=== PATIENT | female | born 1985 | race Caucasian/White ===

== ENCOUNTER 2023-07-27 21:28 | Outpatient (REF) | payer OTHER, SELFPAY ==
[2023-07-30 10:14] LABS: Age Gdln ACOG Testing Note (.); HPV Aptima Negative (Negative); IGP, Aptima HPV, rfx 16/18,45 Note (.)
== END 2023-07-27 21:29 | disposition home or self-care (01) ==
LOC: LAB 21:28
PROVIDERS: PCP Family Medicine; Visit Provider Physician Assistant
DX: Z12.4 Encounter for screening for malignant neoplasm of cervix (principal)
CPT/HCPCS: 87624; G0145

== ENCOUNTER 2024-10-17 19:51 | Outpatient (REF) | payer OTHER, SELFPAY | END 2024-10-17 19:52 | disposition home or self-care (01) | LOC: LAB 19:51 | PROVIDERS: PCP Family Medicine; Visit Provider Physician Assistant | DX: Z01.419 Encounter for gynecological examination (general) (routine) without abnormal findings (principal) | CPT/HCPCS: 87624; 88175 ==

== ENCOUNTER 2025-10-26 19:02 | Outpatient (REF) | payer OTHER, SELFPAY ==
--- OUTSIDE RECORDS SUMMARY | 2025-10-26 19:06 | XMS_ITS | CCD ---
Author Organization [facility] Care Team Providers Care Front Counter Clerk Name Role Phone PHYSICIAN, DEFAULT Unavailable Unavailable PHYSICIAN, DEFAULT Unavailable Unavailable UNKNOWN, PROVIDER Unavailable Unavailable UNKNOWN, PROVIDER Unavailable Unavailable SANAZ, NILSA Unavailable Unavailable SANAZ, NILSA Unavailable Unavailable [place] Unavailable Unavailable UNKNOWN, PROVIDER Unavailable Unavailable UNKNOWN, PROVIDER Unavailable Unavailable UNKNOWN, PROVIDER Unavailable Unavailable SANAZ, NILSA Unavailable Unavailable SANAZ, NILSA Unavailable Unavailable ELOISE WOMACK Referring Unavailable Nilsa Yo Unavailable Bill Ku Unavailable [phone] TIANA, DR MITCHEL Ritter Attending Unavailabl e TIANA, DR MITCHEL Ritter Consulting Unavailabl e TIANA, DR MITCHEL Ritter Admitting Unavailabl e SANAZ, DR ASH Primary Care Unavailable EMELY RANDOLPH Consulting Unavailable NILSA ROACH Consulting Unavailable ANNIE, DR NEWTON Attending Unavailable ANNIE, DR NEWTON Consulting Unavailable ANNIE, DR NEWTON Admitting Unavailable SANAZ, DR ASH Primary Care Unavailable Nilsa Yo MD Primary Care Provider LEROY WARE Attending Unavailable ANA MENENDEZ Attending Unavailable Allergies Allergy ClassificationReported Allergen(s)Allergy TypeDate of OnsetReaction(s) Facility (1 source)ActHIB-DTPDrug allergy (disorder)19-41-3984Tru [facility] (1 source)DTP; Translations: [DTP]Propensity to adverse reactions (disorder) 70-63-8246[facility] (1 source)No Known Allergies; Translations: [No Known Allergies]Propensity to adverse reactions (disorder)[facility] (5 sources)DTP vaccinePropensity to adverse reactionsUnkreno orthopaedic clinic (roc) expressBaytex Other (5 sources)DPT VACCINEPropensity to adverse reactionsUnknoworth PlanStan Other (1 source)Tetanus AND Diphtheria Tox,AdultDrug allergy (disorder)20-27-7797Yrt [facility] Repository (4 sources)Tetanus vaccineDrug Alvtemk77-39-8893ZsoekubZRWW Healthcare Medications Current Medications MedicationDrug Class(es)DatesSig (Normalized)Sig (Original)[id number] 200 actuat albuterol 0.09 mg/actuat metered dose inhaler (9 sources)beta2-Adrenergic AgonistStart: 21-81-3905Segqdbha HFA 108 (90 Base) MCG/ACT 2 inhalations Inhalation 15 min prior to exercise and or q4 hrs prn Sep, Activetake 2 puff(s) by inhalation every four hoursalbuterol HFA (Ventolin HFA) 90 mcg/act inhaler Inhale 2 puffs every 4 hours by inhalation route. Activeamoxicillin 875 mg oral tablet (2 sources)Penicillin-class AntibacterialStart: 29-19-8104uoot 1 tablet by mouth every twelve hoursAmoxicillin 875 MG 1 tablet Orally Twice a day for 10 days Nov, ActiveAspir-81 (5 sources)Aspir-81 Activeaspirin 325 mg oral tablet (2 sources)Platelet Aggregation Inhibitor, Nonsteroidal Anti-inflammatory Drug Start: 32-31-0355fsfp 1 tablet by mouth once dailyAspirin EC 325 MG 1 tablet Orally Once a day Jul, ActiveStart: 13-61-7752nmdl 1 tablet by mouth every twenty-four hoursAspirin EC 325 MG 1 tablet Orally Once a day Jul, ActiveBenadryl Allergy 25 MG (1 source)take 1 tablet by mouth every eight hours as neededBenadryl Allergy 25 MG 1 tablet as needed Orally every 8 hrs prn Activecetirizine hydrochloride 10 mg oral tablet (5 sources)Histamine-1 Receptor Antagonisttake 1 tablet by mouth every twenty- four hoursZyrTEC Allergy 10 MG 1 tablet Orally Once a day PRN Active diphenhydrAMINE hydrochloride 25 mg oral tablet (4 sources)Histamine-1 Receptor Antagonisttake 1 tablet by mouth every eight hoursBenadryl Allergy 25 MG 1 tablet as needed Orally every 8 hrs prn Active potassium 99 mg extended release oral tablet (2 sources)take 1 tablet by mouth once dailyPotassium 99 MG 1 tablet Orally Once a day Active Completed/Discontinued Medications MedicationDrug Class(es)DatesSig (Normalized)Sig (Original)desogestrel 0.15 mg / ethinyl estradiol 0.03 mg oral tablet (11 sources)Progestin, EstrogenStart: 07-27-2023 End: 92-09-3647lico 1 tablet by mouth once dailyApri 0.15-30 MG-MCG tablet Indications: Uses control TAKE 1 TABLET BY MOUTH 1 TIME EACH DAY AT THE SAME TIME. 28 tablet 07/27/2023 10/17/2024 Discontinued End: 21-71-4380gbuhzekjfmc-ethinyl estradiol (Apri) 0.15-30 MG-MCG tablet Take 1 tablet by mouth in the morning. 10/17/2024 Discontinuedtake 1 tablet by mouth every twenty-four hoursEnskyce 0.15-30 MG-MCG 1 tablet Orally Once a day Active ibuprofen 200 mg oral tablet (3 sources)Nonsteroidal Anti-inflammatory Drug End: 29-53-7462kclxmfaqz 200 MG tablet every 6 (six) hours. 10/17/2024 Vjqgiyenmkto01 hr metoprolol succinate 25 mg extended release oral tablet (11 sources)beta-Adrenergic Leslie End: 92-14-4154llhx 1 tablet by mouth every twenty-four hours in the morning metoprolol succinate XL (Toprol XL) 25 MG 24 hr tablet Take 1 tablet by mouth in the morning. 10/17/2024 Discontinued End: 31-91-9755kwxz 1 tablet by mouth in the morningmetoprolol tartrate (Lopressor) 25 MG tablet Take 1 tablet by mouth in the morning and 1 tablet befo re bedtime. 10/17/2024 Discontinuedpolyethylene glycol 3350 64604 mg powder for oral solution (3 sources)Osmotic Laxative End: 56-97-4427djtksdcffrxj glycol, PEG, 3350 (Glycolax) 17 GM/SCOOP powder 10/17/2024 Discontinued Problems Active Problems Problem ClassificationProblemDateDocumented DateEpisodic/ChronicAsthma (5 sources)Asthma; Translations: [Unspecified asthma, uncomplicated]Chronic Cardiac dysrhythmias (5 sources)Atrial fibrillation; Translations: [Unspecified atrial fibrillation] ChronicFever of unknown origin (1 source)Fever, unspecifiedEpisodicMedical examination/evaluation (4 sources)Encounter for other specified special examinations; Translations: [ENCOUNTER FOR OTHER SPECIFIED SPECIAL EXAMINATIONS]Onset: 30-06-8972Nzjnlows Other connective tissue disease (1 source)Arthrodesis status; Translations: [ARTHRODESIS STATUS]Onset: 45-85-7881RxkjfkeoXtmqw connective tissue disease (3 sources)Other specified soft tissue disorders; Translations: [OTHER SPEC SOFT TISSUE DISORDERS]Onset: 10-55-8949CexwxkuiUzlay nutritional; endocrine; and metabolic disorders (5 sources)Overweight; Translations: [Overweight]EpisodicPhlebitis; thrombophlebitis and thromboembolism (3 sources)Phlebitis and thrombophlebitis of other sites; Translations: [Acute embolism and thrombosis of superficial veins of left upper extremity]Onset: 62-85-0366ObpafowiFtzzbwghgvg; intervertebral disc disorders; other back problems (3 sources)Spinal stenosis, cervical region; Translations: [SPINAL STENOSIS, CERVICAL REGION]Onset: 41-68-9532HhnyvwwoIjimlao disorders (5 sources)Subclinical hyperthyroidism; Translations: [Thyrotoxicosis, unspecified without thyrotoxic crisis or storm]ChronicUnclassified (2 sources)Unknown / UNK(Unknown)Onset: 54-19-5973Fxutyyqyakfh (1 source)Other cervical disc displacement at C4-C5 level; Translations: [OTHER CERVICAL DISC DISPLACEMENT ATC4-C5 LEVEL]Onset: 04-26-2018 Past or Other Problems Problem ClassificationProblemDateDocumented DateEpisodic/ChronicImmunizations and screening for infectious disease (1 source)Encounter for screening for human papillomavirus (HPV); Translations: [ENC SCREENING HUMAN PAPILLOMAVIRUS]Onset: 82-47-2936CavxbyheTnhbd screening for suspected conditions (not mental disorders or infectious disease) (4 sources)Encounter for screening for malignant neoplasm of cervix; Translations: [ENC SCREENING MALIG NEOPLASM CERV]Onset: 92-39-6189Watrfazx Results Test NameValueInterpretationReference RangeFacilityIGP,APTIMA HPV,AGE GDLNon 25-03-9442UXQ GDLN ACOG TESTINGNote.NOMS HealthcareComment on above:TESTS RESULT FLAG UNITS REF RANGE LAB Clinician Provided Cytology Information Source.............Cervix;Endocervix No. of containers..01 ThinPrep Vial Age Niki STAHL Agata... 3065 FLAG LEGEND: L-Low Normal,H-High Normal,LL-Alert Low,HH-Alert High <-Panic Low,>-Panic High,A-Abnormal,AA-Critical Abnormal Performed at: 01 =G [address] [place] [address] Brittnee Reagan MD, HPV APTIMANegativeNegativeNOMS HealthcareComment on above:This nucleic acid amplification test detects fourteen high- risk HPV types (16,18,31,33,35,39,45,51,52,56,58,59,66,68) without differentiation. Performed at: = - [facility] [id number] Plastic Tool Maker: Brittnee Reagan MD, Phone: [phone] Performed at: - [address] [id number] Plastic Tool Maker: Brittnee Reagan MD, Phone: [phone] IGP, APTIMA HPV, RFX 16/18,45Note.NOMS HealthcareComment on above:TESTS RESULT FLAG UNITS REF RANGE LAB DIAGNOSIS: 02 NEGATIVE FOR INTRAEPITHELIAL LESION OR MALIGNANCY. Specimen adequacy: 02 Satisfactory for evaluation. No endocervical component is identified. Performed by: 02 Charity Treviño, Crystallizer Operator ([facility]) . 02 Note: Note 02 The Pap smear is a screening test designed to aid in the detection of premalignant and malignant conditions of the uterine cervix. It is not a diagnostic procedure and should not be used as the sole means of detecting cervical cancer. Both false-positive and false-negative reports do occur. Test Methodology: Note 02 This liquid based ThinPrep(R) pap test was screened with the use of an image guided system. HPV Genotype Reflex Note 02 Criteria not met, HPV Genotype not performed. FLAG LEGEND: L-Low Normal,H-High Normal,LL-Alert Low,HH-Alert High <-Panic Low,>-Panic High,A-Abnormal,AA-Critical Abnormal Performed at: [address] [address] Brittnee Reagan MD, BRUSH-SPATULA CERVIX ENDOCERVIX CLINISYNCNOMS HealthcareVZ Immunityon 71-92-0921WF Immunity1.83Normal>1.09[facility] County HospitalComment on above:Result Comment: Interpretation: IMMUNE Reference Range: <0.91 Not Immune 0.91-1.09 Equivocal >1.09 Immune Performed at [facility], [address] [place] [address] .US VENOUS DOPPLER L Ranulfo 72-79-0656XP VENOUS DOPPLER L ARMEXAM: US VENOUS DOPPLER L ARM HISTORY: Swelling of limb COMPARISON: None. TECHNIQUE: Real-time grayscale, color flow and duplex imaging was performed to the left upper arm FINDINGS: IMPRESSION: Thrombus is visualized within the cephalic vein between the wrist and antecubital fossa. The remainder of the visualized venous system is unremarkable. Electronically authenticated by: NILSA ROACH Date: 2022-10-13 15:43[facility] Citizens HospitalOG PANEL 2: 30 to 65on 06-24-2022..NormalThe [facility] CenterComkalamazoo psychiatric hospital on above:Result Comment: Performed at: WBPerformed By: #### [id number] #### [facility] [address] [place] [address] Dr. Keith Fisher Gdln ACOG Jfwxmbw10-51LgzguiFnkSelect Medical Specialty Hospital - ColumbusComkalamazoo psychiatric hospital on above:Performed By: #### [id number] #### [facility] [address] [place] [address] Dr. Keith MartinezDIAGNOSIS:CommentPomerene Hospital on above: Result Comment: NEGATIVE FOR INTRAEPITHELIAL LESION OR MALIGNANCY. Performed at: WBPerformed By: #### [id number] #### [facility] [address] [place] [address] Dr. Keith MartinezHPV AptimaNegativeNormalNegativeThe [facility] on above:Result Comment: This nucleic acid amplification test detects fourteen high-risk HPV types (16,18,31,33,35,39,45,51,52,56,58,59,66,68) without differentiation. Performed at: =GPerformed By: #### [id number] #### [facility] [address] [address] [address] Keith MartinezMethodology:CommentPomerene Hospital on above: Result Comment: This liquid based ThinPrep(R) pap test was screened with the use of an image guided system. Performed at: WBPerformed By: #### [id number] #### [facility] [address] [place] [address] Dr. Keith MartinezNote:CommentNormalThe Arlyn HospitalComment on above:Result Comment: The Pap smear is a screening test designed to aid in the detection of premalignant and malignant conditions of the uterine cervix. It is not a diagnostic procedure and should not be used as the sole means of detecting cervical cancer. Both false-positive and false-negative reports do occur. . Performed at: WBPerformed By: #### [id number] #### [facility] [address] [place] [address] Dr. Keith MartinezPerformed by:CommentMartins Ferry HospitalComkalamazoo psychiatric hospital on above: Result Comment: Magnus Brock, Crystallizer Operator (ASCP) Performed at: WBPerformed By: #### [id number] #### [facility] [address] [place] [address] Dr. Keith MartinezSpecimehailey adequacy:[facility] HospitalComkalamazoo psychiatric hospital on above:Result Comment: Satisfactory for evaluation. Endocervical and/or squamous metaplastic cells (endocervical component) are present. Performed at: WBPerformed By: #### [id number] #### [facility] [address] [place] [address] Dr. Keith Doherty (Rubeola) Imon 75-74-0134Nrszxzj (Rubeola) Im2.20Normal >1.09[facility] Health SystemComment on above:Result Comment: Interpretation: IMMUNE Reference Range: <0.91 Not Immune 0.91-1.09 Equivocal >1.09 ImmunePerformed By: #### CHARITO, TSPOT, NAHID, HENRRY, VZI #### [employer] [address] [place] [address] Plastic Tool Maker: GRETCHEN Trinhumps,Immun,Abon 04-42-3474Aekat,Immun,Ab1.54 Normal>1.09[facility] Health SystemComment on above:Result Comment: Interpretation: IMMUNE Reference Range: <0.91 Not Immune 0.91-1.09 Equivocal >1.09 ImmunePerformed By: #### CHARITO, TSPOT, NAHID, HENRRY, VZI #### [employer] [address] [place] [address] Plastic Tool Maker: NORMA Trinh-Spoton 19-11-8807U-Spot. TB TestNoMercy Health St. Charles HospitalComment on above:Result Comment: [employer] [address] [place] [address] (NOTE) T-SPOT.TB Test Results --------- T-SPOT TB Negative Normal Value: Negative A negative test result does not exclude the possibility of exposure to or infection with Mycobacterium tuberculosis (M tuberculosis). Patients with recent exposure to TB infected individuals exhibiting a negative T-SPOT.TB result should be considered for retesting within 6 weeks or if other relevant clinical symptoms indicate. Results from T-SPOT.TB testing must be used in conjunction with each individual's epidemiological history, current medical status, and results of other diagnostic evaluations. The T-SPOT.TB test is qualitative and results are reported as positive, borderline or negative, given that the test controls perform as expected. In line with the Centers for Disease Control and Prevention's 2010 recommendation to report quantitative measurements alongside the qualitative result, the laboratory provides spot counts for information purposes only. The T-SPOT.TB test should be interpreted as a quantitative test. Panel A Spot Count (Corrected for Negative Control) 0 Panel B Spot Count (Corrected for Negative Control) 0 Negative Control Passed Positive Control PassedPerformed By: #### CHARITO, TSPOT, NAHID, HENRRY, VZI #### [facility] [employer] [address] [place] [address] Plastic Tool Maker: CLAU Trinh Immunityon 86-25-5788PD Immunity1.55Normal >1.09[facility] Health SystemComment on above:Result Comment: Interpretation: IMMUNE Reference Range: <0.91 Not Immune 0.91-1.09 Equivocal >1.09 ImmunePerformed By: #### CHARITO, TSPOT, NAHID, HENRRY, VZI #### [facility] [address] [place], [place] [id number] Plastic Tool Maker: Iza Trinh Ab, IgGon 15-65-6284Lfndhtm Ab, IgG >500.0NormalHolzer Health SystemComment on above:Result Comment: REFERENCE RANGE: <5.0 NON-REACTIVE (non-immune) 5.0 TO 9.9 EQUIVOCAL >=10.0 REACTIVE (immune)Performed By: #### CHARITO, TSPOT, NAHID, HENRRY, VZI #### [employer] [address] [place] [address] Plastic Tool Maker: Salo Muse MDCERVICAL SPINE 2 OR 3 Edward 51-93-6813JLFJTBTK SPINE 2 OR 3 SUniAvita Health System Galion HospitalDepartment of Qpitvf[address] [place] [address] Patien t Name: ANA WEN : 1985Sex: FAge: Race: WhiteMRN: [id number]. Location: 85Patient Status: OVisit #: [id number] Date: 05/11/2018 10:05:00 AMCompleted Date: 05/11/2018 10:10 AMRequesting Provider: JESSE CUEVAS Attending Provider: JESSE CUEVAS Report Copy To: NILSA YO Signs & Symptoms: Z01.89 Encounter for other specified special examinations N07Zclajqf: AthenaComments:, PREOP XRAY AP/LAT \EANDE\ FLEX/EX , PREOP XRAY AP/LAT \EANDE\ FLEX/EX , , , Ordering Provider - JESSE CUEVAS MD , Exam: CERVICAL SPINE 2 OR 3 VWSAccession #: [id number] CERVICAL SPINE 2 OR 3 VWS 05/11/2018 10:10 AM EDT SIGNS AND SYMPTOMS: Z01.89 Encounter for other specified special examinations I10 TECHNOLOGIST COMMENTS: post op 2 weeks, f/u PROTOCOLS: AP, Odontoid and Lateral views were obtained. COMPARISON: April 26, 2018 and April 13, 2018 FINDINGS: Status post C4-C6 ACDF. No apparent hardware complication. Mild residual prevertebral soft tissue swelling. Normal facet and vertebral body alignment. Slight straightening of the cervical lordosis. Lung apices appear unremarkable. IMPRESSION: C4-C6ACDF without apparent hardware complication. Mild residual prevertebral soft tissue swelling. Approved by:Jean Pierre Jackson on 05/11/2018 6:58 PM EDT. I, Fabian Dugan, have reviewed the images and report and concur with these findings. Electronically signed by:Fabian Dugan. Transcribed by: [email or web address], User Resident: DIANE JACKSONElectronically Signed by: FABIAN DUGAN @ 05/11/2018 07:14 PMI personally read this/these film(s) with this residentDayton VA Medical CenterComment on above:Order Comment: , PREOP XRAY AP/LAT \EANDE\ FLEX/EX , PREOP XRAY AP/LAT \EANDE\ FLEX/EX , , , Ordering Provider - JESSE CUEVAS MD , Discharge Summaryon [id number] SummaryMR#: [id number] [facility] Wen Admitted: 04/26/2018 Discharged: 04/27/2018 Date of : 1985 Physician: Jesse Cuevas M.D. DISCHARGE SUMMARYPRIMARY DIAGNOSIS: Cervical spinal stenosis.SUMMARY OF HOSPITAL STAY: This is a 32-year-old female who was admitted,status post anterior cervical diskectomy and fusion C4-5 and C5-6. Thepatient tolerated the procedure well and was transferred to the floor instable condition. Postoperatively, the patient did well and developed noacute complications. On day of discharge, the patient is in stableconditionwith the following instructions provided to the patient.DISCHARGE INSTRUCTIONS:1. The patient is to wear [place] J collar at all times.2. Okay to shower. Do not get incision wet.3. Follow instructions on use of pain medications.4. The patient is to follow a regular diet.5. The patient may shower. Mayreturn to work when cleared by Neurosurgery. No driving while on collar, while on pain medications,and until cleared by Neurosurgery. No lifting greater than 5-10 pounds. Weightbearing status continues as tolerated.6. The patient is to change neck dressing daily and when wet or dirty with any dry dressing. If tape strips are present under dressing do not remove.7. The patient is to follow up with Dr. Cuevas on May 11, 2018 at 10:15 in the morning. She is to arrive 30 minutes early for x-ray prior to appointment and then proceed to clinic.8. The patient is to call neurosurgeon on-call for an increase in temperature, increased drainage, other increased bleeding, unrelieved pain, difficulty swallowing, new weakness, or any other problems.9. The patient is discharging home on the following medications.DISCHARGE MEDICATIONS:1. Apri.2. Methocarbamol.3. Oxycodone 5 mg 1-2 tablets every 6 hours as needed for acute postop pain. Prescription provided for 56 tablets.4. Sennoside docusate.5. Benzocaine menthol throat lozenges.6. MiraLax.7. Toprol-XL.8. Ventolin.9. Vistaril.Electronically Signed by:Jesse Cuevas M.D. 04/28/2018 04:15 P Jesse Cuevas M.D. I personally saw this patient on the day of the encounter, performed thekey portion(s) of the service and participated in the management andconfirm the resident's documentation. Please note there may be anadditional personal documentation from me. Date Dict: 04/28/2018/11:01 A/JAYRO Darby,ULTRASONOGRAPHER-CDate Trans: 04/28/2018 11:46 A/mmoDN_JN:[id number]: Nilsa Yo D.O. [address] [place] [address]BepduoWij Parkview HealthBASIC METABOLIC PANELon 79-48-2672Rvhpfdv3.1 mg/dLLow8.6-10.3The Park[facility] HealthComment on above:Order Comment: No: Do not add to previous drawPerformed By: #### 22936, [id number] ####[facility] [place] [address], PKPAvjquvyn158 mmol/LHigh 98-107The [facility] HealthComment on above:Order Comment: No: Do not add to previous drawPerformed By: #### 57703, 57145 ####[facility] [place] [address], MHHET942 mmol/LNormal 21-31The [facility] HealthComment on above:Order Comment: No: Do not add to previous drawPerformed By: #### 60578, 13475 ####[facility] [place] [address], USACreatinine0.62 mg/dLNormal0.60-1.20The [facility] HealthComment on above: Order Comment: No: Do not add to previous drawPerformed By: #### 97440, 38559 ####[facility] [place] [address], [place] eGFR (black)mL/min/{1.73_m2}Normal>60The [facility] Comment on above:Order Comment: No: Do not add to previous drawPerformed By: #### 45174, 31177 ####[facility] [place] [address], USAeGFR (non-black)mL/min/{1.73_m2}Normal>60The [facility] HealthComment on above:Order Comment: No: Do not add to previous drawPerformed By: #### 40852, 49777 ####[facility] [place] [address], USAGlucose mass lcoz109 mg/dLHigh 70-100The [facility] HealthComment on above:Order Comment: No: Do not add to previous drawPerformed By: #### 90625, 69381 ####[facility] [place] [address], USAPotassium molar conc3.9 mmol/LNormal3.5-5.1The [facility] HealthComment on above:Order Comment: No: Do not add to previous drawPerformed By: #### 35682, 62491 ####[facility] [place] [address], CVLWwjmbm750 mmol/QQtewue884-845Uuf [facility] Comment on above:Order Comment: No: Do not add to previous drawPerformed By: #### 43157, 55823 ####[facility] [place] [address], USAUrea nitrogen8 mg/dLNormal7-25The [facility] HealthComment on above:Order Comment: No: Do not add to previous draw Performed By: #### 04911, 79733 ####[facility] [facility] [place] [address], USACBC COMPLETE BLOOD COUNTon 04-27-2018 Erythrocyte distribution width Auto Ratio (RBC)12.7 %Hkzewb69.5-15.0The [facility] HealthComment on above:Order Comment: No: Do not add to previous drawPerformed By: #### 99593, 01561 ####[facility] [place] [address], [facility] CLINICErythrocytes (RBC)0 % Normal0-0The [facility] HealthComment on above:Order Comment: No: Do not add to previous drawPerformed By: #### 90876, 22380 ####[facility] [facility] [place] [address], [facility] CLINICErythrocytes (RBC) 4.12 10*6/uLNormal3.80-5.00The [facility] HealthComment on above:Order Comment: No: Do not add to previous drawPerformed By: #### 47777, 95670 ####[facility] [facility] [place] [address], [facility] CLINICHematocrit (HCT)37.7 %Hrjcfs88.0-45.0The [facility] HealthComment on above:Order Comment: No: Do not add to previous drawPerformed By: #### 21160, 64528 ####[facility] [facility] [place] [address], [facility]INICHemoglobin mass conc (Bld)12.9 g/vCMvwrzr32.0-15.0The [facility] HealthComment on above:Order Comment: No: Do not add to previous drawPerformed By: #### 71393, 00189 ####[facility] [facility] [place] [address], KREHYB85.3 rkJfuczm99.0-33.0 The Parkview HealthComment on above:Order Comment: No: Do not add to previous drawPerformed By: #### 57255, 48452 ####[facility] [facility] [place] [address], [facility]ENTAL CLINICMCHC mass conc (RBC)34.2 g/nCZqhbdd38.0-35.0The Parkview HealthComment on above:Order Comment: No: Do not add to previous drawPerformed By: #### 85649, 62588 ####[facility] [facility] [place] [address], [facility] MCV91.5 xMZuuaix61.0-98.0The Parkview HealthComment on above:Order Comment: No: Do not add to previous drawPerformed By: #### 55295, 23513 ####[facility] [place] [address], [facility] DENTAL CLINICPLAT NCQ534 10*3/vYJwxmki282-459Gup Parkview HealthComment on above:Order Comment: No: Do not add to previous drawPerformed By: #### 20134, 31782 ####[facility] [place] [address], [facility]AL CLINICWBC (Leukocytes)11.71 10*3/uLHigh4.00-10.60The Parkview HealthComment on above:Order Comment: No: Do not add to previous drawPerformed By: #### 32790, 86231 ####[facility] [facility] [place] [address], [facility]AL CLINICOperative Reporton [id number] ReportMR#: [id number] [facility] Name[facility] Ana Wen Room #: 5CD [id number] Discharge Date: Birthdate: 1985 OPERATIVE REPORTDATE OF SURGERY: 04/26/2018SURGEON: Jesse Cuevas M.D.PREOPERATIVE DIAGNOSIS: Herniated disk at C4-5 and C5-6.POSTOPERATIVE DIAGNOSIS: Herniated diskat C4-5 and C5-6.SURGEON: Jesse Cuevas M.D.AQUATICS SPECIALIST: RINA Tran, Student.ANESTHESIA: Endotracheal, Dr. Villasenor.PROCEDURE: Anterior cervical decompression and fusion at C4-5 and C5-6usi ng Medtronic cages and instrumentation.1. SSEP.2. MEP.3. Fluoroscopy.4. Microscope.5. ACD at C4-5.6. ACD at C5-6.7. Endplate decortication at C4-5 and C5-6.8. Bilateral foraminotomy, C4-5 and C5-6.9.Osteophytectomy, C4-5 and C5- 6.10. Medtronic cage placed at C4-5 size 6 x 14 x 11.11. Medtronic cage placed at C5-6 size 7 x 14 x 11.12. Plate 35 mm, [place] plate.13. Screws size 4 x 15 x 6.14. Cage stuffed with Mastergraft.15. MANPREET.ESTIMATED BLOOD LOSS: Minimal.OPERATIVE INDICATION: The patient has been complaining of neck pain aswell as right shoulder and right arm pain. This has resisted physicaltherapy. Risks and benefits explained and consent obtained. The MRI alsowas discussed and showed that there was a large disk herniation at C5-6 talat disk herniation at C4-5 with foraminal narrowing, worse on the right.DESCRIPTION OF PROCEDURE: Under general endotracheal anesthesia in thesupine position, head in neutral position on the headrest, all prominentareas were padded. The head was placed in neutral position. The cervicalregion was cleaned and prepped in usual fashion. An incision was made inthe upper middle 3rd, and from the midline laterally about 5 cm.Dissection was carried out above and below the platysma anterior to thesternocleidomastoid. Palpation localized the carotid and the strap muscleswere medially retracted exposing the anterior surface of the cervicalspine. The Trimline retractors were placed under the longus Poonam musclesbilaterally exposing C4-5 and C5-6. Lateral spine intraoperative x-ray wasdone to confirm the level of C4-5 and C5-6. Once the retractors wereplaced, the Bovie and pituitary rongeur were used to expose the diskspaces. A 15 blade was used to enter the disk space at C4-5 and C5-6.Pituitary rongeur and curettes were used to remove the disk. Once bothdisks were removed partially, drilling was carried out exposing theforamina bilaterally at C4-5 and C5-6. Once the foraminotomies werecompleted, under high magnification using the microscope en dplates weredecorticated and total disk removed was completed at C4-5 and C5- 6.Foraminotomy bilaterally as well as osteophytectomy was achievedbilaterally at C5-6 and C4-5. Osteophytectomy was achieved using Kerrison2 and 1 and then the Medtronic cage size 6 was used for C4-5 and size 7 wasused forC5-6. The cage was stuffed with Mastergraft. Plate size 35 wasplaced on top of the vertebral bodies C4 through C6. Screws were size 15 x4 x 6. MANPREET was placed and EBL was minimal. The patient toleratedtheprocedure, and the sensory evoked potentials and motor evoked potentials.There was no complication. Closure was carried out in usual fashion.Electronically Signed by:Jesse Cuevas M.D. 04/28/2018 04:15 P Jesse Cuevas M.D.Date Dict: 04/26/2018/12:50 P/Jesse Cuevas M.D.Date Trans: 04/26/2018 11:48 P/mmoDN_JN:[id number]: Nilsa Yo D.O. [address] [place] [address] 00571FhusjwMrzDayton VA Medical CenterCERVICAL SPINE 2 OR 3 [facility] [id number] SPINE 2 OR 3 SUniAvita Health System Galion HospitalDepartment of Sprvwywen[address] [place] [id number] Patien t Name: ANA WEN : 1985Sex: FAge: Race: WhiteMRN: [id number]. Location: 0CPatient Status: OVisit #: [id number] Date: 04/26/2018 7:30:00 AMCompleted Date: 04/26/2018 12:04 PMRequesting Provider: JESSE CUEVAS Attending Provider: JESSE CUEVAS Report Copy To: Signs & Symptoms: C4-C5, C5-C6 ANTERIOR CERVICAL DISCECTOMY WITH FUSIONHistory: C4-C5, C5-C6 ANTERIOR CERVICAL DISCECTOMY WITH FUSIONComments: C4-C5, C5-C6 ANTERIOR CERVICAL DISCECTOMY WITH FUSIONExam: CERVICAL SPINE 2OR 3 VWSAccession #: [id number] ==CERVICAL SPINE 2 OR 3 VWS 04/26/2018 12:04 PM EDT SIGNS AND SYMPTOMS: C4-C5, C5-C6 ANTERIOR CERVICAL DISCECTOMY WITH FUSION TECHNOLOGIST COMMENTS: Intra-op c-arm procedure. C4-C6 ACD[address] Cuevas OR 3 8 seconds of fluoroscopy used. [place] c-arm in at 0930 and out at 1150. QUESTION FOR THE RADIOLOGIST: C4-C5, C5-C6 ANTERIOR CERVICAL DISCECTOMY WITH FUSION PROTOCOLS: AP, Odontoid and Lateral views were obtained. COMPARISON: None FINDINGS: Spot fluoroscopic images demonstrate placement of a surgical marker anteriorly at the C5-C6 level and subsequent deployment of anterior fusion C4-C6 IMPRESSION: Spot fluoroscopic images demonstrate placement of a surgical marker anteriorly at the C5-C6 level and subsequent deployment of anterior fusion C4-C6 Electronically signed by:Jennifer Thomas. Transcribed by: [id number], User Resident: Electronically Signed by: JENNIFER THOMAS @ 04/26/2018 01:30 PMNormalThe Parkview HealthComment on above:Order Comment: C4-C5, C5-C6 ANTERIOR CERVICAL DISCECTOMY WITH FUSIONPOC GLUCOSE LABon 25-54-2492Lahiras mass conc94 mg/dL Rsmkku58-208Jbl Parkview HealthComment on above:Performed By: #### 07636 ####[facility] [place] [address], USAPOC URINE PREGNANCYon 36-79-4385HAX.beta subunit ( test) Ql (U)NegativeNormalNEGATIVEThe Parkview HealthComment on above:Result Comment: Performed in PACUPerformed By: #### 81236, 77248 ####[facility] [place] [address], [place] RBC'S 2 UNITSon 00-80-1377GDXSNFWHYP INTERP 1COMPNoMercy Health St. Elizabeth Boardman HospitalComment on above:Performed By: #### 61968 ####[facility] [facility] [place] [address], [facility] [facility] CLINICCROSSMATCH INTERP 2COMP NormalUC West Chester HospitalComment on above:Performed By: #### 09061 ####[facility] [facility] [place] [address], USAPRODUCT CODE [id number] VA Medical Center Comment on above:Performed By: #### 33803 ####[facility] [facility] [place] [address], USAPRODUCT CODE [id number] VA Medical CenterComment on above:Performed By: #### 29241 ####[facility] [facility] [place] [address], [place] PRODUCT STATUS 1RUniversity Hospitals St. John Medical CenterComment on above: Result Comment: Result changed by IF on 04/29/2018 07:54. The previous value was XM.Performed By: #### 41340 ####[facility] [facility] [place] [address], USAPRODUCT STATUS 2RUniversity Hospitals St. John Medical CenterComment on above:Result Comment: Result changed by IF on 04/29/2018 07:54. The previous value was XM.Performed By: #### 53476 ####[facility] [place] [address], [place] UNIT ABO 1ADayton VA Medical CenterComment on above: Performed By: #### 56432 ####[facility] [place] [address], USAUNIT ABO 2ADayton VA Medical CenterComment on above:Performed By: #### 32101 ####[facility] [place] [address], [facility] [facility] CLINICUNIT ID [id number]-BXdgoccAytMagruder Memorial HospitalComment on above:Performed By: #### 11819 ####[facility] [facility] [place] [address], [facility] UNIT ID [id number]-VUxksvhVcbCrystal Clinic Orthopedic CenterComment on above:Performed By: #### 68900 ####[facility] [facility] [place] [address], [facility] CLINICUNIT RH 1NegativeNoMercy Health St. Elizabeth Boardman HospitalComment on above:Performed By: #### 74915 ####[facility] [facility] [place] [address], [facility] CLINICUNIT RH 2Negative NormalUC West Chester HospitalComment on above:Performed By: #### 51815 ####[facility] [facility].[address]*MRSA/MSSA CULTUREon 04-13-2018*MRSA/MSSA CULTUREClinical Report: (D) Specimen: NASAL SWAB Collected: 04/13/2018 10:30 Status: Final Last Updated: 10:24 ISO (Final) No Methicillin Resistant Staphylococcus aureus Isolated (MRSA) ISO (Final) No Methicillin Sensitive Staphylococcus aureus Isolated (MSSA)NormalThe Parkview HealthComment on above: Performed By: #### 66188 ####[facility] [facility].[address] StreetAPTTon 01-91-4148iPQV98.3 nLbzqqd81.0-35.0The Parkview HealthComment on above:Result Comment: ALL RESULTS MUST BE INTERPRETED WITH RESPECT TO BLOOD DRAWING ARTIFACTOR DILUTION ERROR OF ANTICOAGULANT AT THE TIME OF SAMPLING.THE APTT SHOULD NOT BE USED TO MONITOR UNFRACTIONATED HEPARIN THERAPY, THIS LABORATORY NO LONGER HAS AN ESTABLISHED THERAPEUTIC RANGE BASEDON THE APTT. IT IS RECOMMENDED THAT THE UFH - HEPARIN ASSAY (ANTI-XAACTIVITY) BE USED FOR THIS PURPOSE.Performed By: #### 72246, 57996 ####[facility] [place] [address], [place] BASIC METABOLIC PANELon 70-51-3385Ohatvga1.4 mg/dLNormal8.6-10.3The Parkview HealthComment on above:Performed By: #### 66140 ####[facility] [place] [address], JUJYkcpxhhb435 mmol/OQpblwu61-775Hxt Parkview HealthComment on above: Performed By: #### 15887 ####[facility] [place] [address], FYITO639 mmol/IMyudxb86-36Pmc Parkview HealthComment on above:Performed By: #### 99379 ####[facility] [place] [address], USACreatinine0.60 mg/dLNormal 0.60-1.20The Parkview HealthComment on above:Performed By: #### 01834 ####[facility] [place] [address], USAeGFR (black)mL/min/{1.73_m2}Normal>60The Parkview HealthComment on above:Performed By: #### 86017 ####[facility] [place] [address], USAeGFR (non-black)mL/min/{1.73_m2} Normal>60The Parkview HealthComment on above:Performed By: #### 94584 ####[facility] [place] [address], USAGlucose mass conc94 mg/bKEvgxpc76-273Uts Parkview HealthComment on above:Performed By: #### 85758 ####[facility] [place] [address], USAPotassium molar conc4.2 mmol/L Normal3.5-5.1The Parkview HealthComment on above:Performed By: #### 43469 ####[facility] [facility] [place] [address], AEACpokfk149 mmol/TLgppqj983-005Bna Parkview HealthComment on above:Performed By: #### 40526 ####[facility] [facility] [place] [address], [facility] CLINICUrea nhgypfsh50 mg/dLNormal7-25The Parkview HealthComment on above:Performed By: #### 10349 ####[place] [address] [facility] [place] [address], [facility] CBC W/DIFFon 88-29-3141JYA BASOPHILS0.0 10*3/uLNormal0.0-0.2The Parkview HealthComment on above:Performed By: #### 32379 ####[facility] [facility] [place] [address], [facility] [facility] CLINICABS IMM GRANS0.0 10*3/uLNormal0.0-0.2The Parkview HealthComment on above: Performed By: #### 49252 ####[address] [place] [address], [facility] CLINICBasophils Auto #/vol (Bld)0.3 %Normal0.0-1.0The Parkview HealthComment on above:Performed By: #### 44452 ####[place] [address] [facility] [place] [address], [facility] Eosinophils0.2 10*3/uLNormal0.0-0.5The [facility] Comment on above:Performed By: #### 69596 ####[address] [place] [address], [facility] CLINICEosinophils/100 leukocytes2.9 % Normal0.0-6.0The Parkview HealthComment on above:Performed By: #### 75361 ####[address] [place] [address], [facility] CLINICErythrocyte distribution width Auto Ratio (RBC)13.0 %Normal 11.5-15.0The Parkview HealthComment on above:Performed By: #### 07792 ####[address] [place] [address], [facility] CLINICErythrocytes (RBC)4.96 10*6/uLNormal3.80-5.00The Parkview HealthComment on above:Performed By: #### 98977 ####[address] [place] [address], [facility] CLINICErythrocytes (RBC)0 % Normal0-0The Parkview HealthComment on above:Performed By: #### 35968 ####[address] [place] [address], [facility] CLINICHematocrit (HCT)45.9 %High36.0-45.0The Parkview HealthComment on above:Performed By: #### 27208 ####[address] [address], [facility] CLINICHemoglobin mass conc (Bld)15.5 g/oRByxl59.0-15.0The Parkview HealthComment on above: Performed By: #### 50597 ####[address] [place] [address], [facility] CLINICIMMATURE GRANS0.3 %Normal0.0-1.0The Parkview HealthComment on above:Performed By: #### 50294 ####[address] [place] [address], [facility] CLINICLymphocytes2.0 10*3/uLNormal1.2-4.0The Parkview HealthComment on above: Performed By: #### 38873 ####[address]Lymphocytes/100 roucdcqvqq90.7 %Ftutoj29.0-45.0The Parkview HealthComment on above:Performed By: #### 23166 ####[address] MCH31.3 tpIycyxc12.0-33.0The Parkview HealthComment on above:Performed By: #### 19959 ####[address] StreetMCHC mass conc (RBC)33.8 g/gJDnmhlt04.0-35.0 The Parkview HealthComment on above:Performed By: #### 61291 ####[address] MCV92.5 gKCevwru47.0-98.0The Parkview HealthComment on above:Performed By: #### 75410 ####[address]Monocytes0.4 10*3/uLNormal0.1-1.0The Parkview HealthComment on above:Performed By: #### 50078 ####[address] MONOS6.0 %Normal5.0-12.0The Parkview HealthComment on above: Performed By: #### 05979 ####[address]Neutrophils3.3 10*3/uLNormal1.6-7.6The Parkview HealthComment on above:Performed By: #### 70416 ####[address] [place] [address], [facility] CLINICNeutrophils/100 qinuryqppi87.8 %Hlkkmy56.0-72.0The Parkview HealthComment on above:Performed By: #### 43427 ####[facility] [place] [address].[place] [address], [facility] [facility]AL CLINICPLAT CZE900 10*3/sWCixdkp296-701Eip Parkview HealthComment on above:Performed By: #### 63575 ####[address] [place] [address], [facility] WBC (Leukocytes)5.79 10*3/uLNormal4.00-10.60The Parkview HealthComment on above:Performed By: #### [address]678 ####[place] [address], [facility] CLINICCERVICAL SPINE 4 OR 5 VIEWSon 90-15-1697RMJTNCBF SPINE 4 OR 5 VIEWSUnTrinity Health SystemDepartment of Cknekdqqi[address] [place] [address] Patien t Name: ANA WEN : 1985Sex: FAge: Race: WhiteMRN: [id number]. Location: 85Patient Status: OVisit #: [id number] Date: 04/13/2018 10:50:00 AMCompleted Date: 04/13/2018 11:25 AMRequesting Provider: JESSE CUEVAS Attending Provider: JESSE CUEVAS Report Copy To: NILSA YO Signs & Symptoms: M48.02 Spinal stenosis, cervical region U91Rsgomir: AthenaComments: , , POST OP XRAY AP/LAT ONLY , , , Ordering Provider - JESSE CUEVAS MD , Rendering Provider - JESSE CUEVAS MD , Exam: CERVICAL SPINE 4 OR 5 VIEWSAccession #: [id number] CERVICAL SPINE 4 OR 5 VIEWS 04/13/2018 11:25 AM EDT SIGNS AND SYMPTOMS: M48.02 Spinal stenosis, cervical region I10 TECHNOLOGIST COMMENTS: neck pain radiating down to both arms pre-op imaging QUESTION FOR THE RADIOLOGIST: , , POST OP XRAY AP/LAT ONLY, , , Ordering Provider - JESSE CUEVAS MD , Rendering Provider - JESSE CUEVAS MD, PROTOCOLS: AP,Odontoid, Lateral, Flexion and Extension views.AP,Odontoid,Lateral and Bilateral Oblique views were obtained. COMPARISON: None FINDINGS: The bones are in anatomic alignment. There is preservation of the vertebral body heights and intervertebral disc spaces apart from minimal disc space narrowing at C4-5. There is no fracture or destructive lesion. Flexion- extension and extension views demonstrate normal range of motion with out pathologic vertebral body movement. IMPRESSION: Negative cervical spine apart from minimal disc space narrowing at C4-5. Approved by:Sebastián on 04/13/2018 11:34 AM EDT. I, Liya Membreno, have reviewed the images and report and concur with these findings. Electronically signed by:Liya Membreno. Transcribed by: [id number], User Resident: BILL WILLSElectronically Signed by: LIYA MEMBRENO @ 04/13/2018 04:02 PMI personally read this/these film(s) with this [facility] Bing, MD, Cancer CenterComment on above: Order Comment: , , POST OP XRAY AP/LAT ONLY , , , Ordering Provider - JESSE CUEVAS MD , Rendering Provider - JESSE CUEVAS MD , PROTHROMBIN TIMEon 03-50-8002YAR Coag RelTime (PPP)0.99 {INR}Normal0.91-1.16UC [facility] HospitalComment on above:Result Comment: [facility] RECOMMENDED INR FOR WARFARIN THERAPY CONDITION INRPROPHYLAXIS OF VENOUS THROMBOSIS 2-3(HIGH-RISK SURGERY)TREATMENT OF VENOUS THROMBOSIS 2-3TREATMENT OF PULMONARY EMBOLISM 2-3PREVENTION OF SYSTEMIC EMBOLISM: 2-3 ACUTE MYOCARDIAL INFARCTION TISSUE HEART VALVES VALVULAR HEART DISEASE ATRIAL FIBRILLATION RECURRENT SYSTEMIC EMBOLISMMECHANICAL HEART VALVE 2.5-3.5 FROM: ORAL ANTICOAGULANTS. MECHANISM OF ACTION, CLINICALEFFECTIVENESS, AND OPTIMAL THERAPEU TIC RANGE. [id number];108:231S-246S.Performed By: #### 69935, 54370 ####[facility] [facility].[address] Prothrombin time (PT) Coag time (PPP)13.1 dLsiraa99.3-14.8The Parkview HealthComment on above:Result Comment: ALL RESULTS MUST BE INTERPRETED WITH RESPECT TO BLOOD DRAWING ARTIFACTOR DILUTION ERROR OF ANTICOAGULANT AT THE TIME OF SAMPLING.Performed By: #### 90158, 06809 ####[facility] [facility] [place] [address], [facility] TYPE AND CROSSMATCHon 95-13-0402EBN [facility] Medical CenterComment on above:Performed By: #### 02728 ####[facility] [place] [address], USAANTIBODY SCREEN NegativeDayton VA Medical CenterComment on above:Performed By: #### 99776 ####[facility] [place] [address], USARH INTERPRETATIONNegativeNormCleveland Clinic Avon Hospitale Parkview HealthComment on above:Performed By: #### 94861 ####[facility] [place] [address], USAURINALYSIS REFLEXon 04-13-2018 Bilirubin (total)NegativeNormalNEGATIVEThe [facility] Comment on above:Performed By: #### 80051 ####[facility] [place] [address], USABLOODNegativeNormalNEGATIVEThe Parkview HealthComment on above:Performed By: #### 29276 ####[facility] [place] [address], [place] Glucose mass concNegativeNormalNEGATIVEThe [facility] Comment on above:Performed By: #### 03632 ####[facility] [place] [address], USAKETONENegativeNormalNEGATIVEThe Parkview HealthComment on above:Performed By: #### 88220 ####[facility] [place] [address], [place] LEUK ESTERNegativeNormalNEGATIVEThe Parkview HealthComment on above:Performed By: #### 84142 ####[facility] [place] [address], USAMICRO NOT DONEnegative chemical reactions unless requested in original orderNoMercy Health St. [facility] Comment on above:Performed By: #### 94457 ####[facility] [place] [address], [facility]ICpH of blood8.0 [pH]Normal5.0-8.0 The Parkview HealthComment on above:Performed By: #### 30043 ####[facility] ProteinNegativeNormalNEGATIVEThe Parkview HealthComment on above:Performed By: #### 14509 ####[facility] [place] [address], [facility] CLINICSPEC GRAV1.314Rmq1.015-1.020The [facility]view HealthComment on above:Performed By: #### 78740 ####[facility] [place] [address], [facility] CLINICUrine, appearanceCLEARNormalCLEARThe Parkview HealthComment on above:Performed By: #### 48904 ####[facility] [place] [address], [facility]INICUrine, colorSTRAWAbnormalYELLOWThe Parkview HealthComment on above:Performed By: #### 80929 ####[facility] Urine, nitrite presenceNegativeNormalNEGATIVEThe Parkview HealthComment on above:Performed By: #### 83809 ####[facility] Vital Signs Date TimeVital SignValuePerforming AjycotknzIfolindn17-40-5636 14:23-0500Body mass index (BMI) [Ratio]33.02 kg/m2Ana HAN Work Phone: [facility] HospitalGqntzhhlrl83-97-9955 14:23-050Body .62 kgAna HAN Work Phone: [facility] HospitalKooujojeyt41-46-1864 14:23-0500Diastolic blood mm[Hg]Ana HAN Work Phone: noTX Vgomzgvjee50-04-8110 14:23-0500Systolic blood tsqdgfub183 mm[Hg]Ana HAN Work Phone: noTX Glmivnqgdm39-47-3420 11:15-0500Body uhoekg765.72 cmMattgloria Ku Other [employer] Other 12-07-2022 11:15-0500Body mass index (BMI) [Ratio] 29.65 kg/r1Kbfspnntriston Ku Other [employer] Other 12-07-2022 11:15-0500Body nhscnaingiq87.8 [degF] Bill Ku Other [employer] Other 12-07-2022 11:15-0500Body xdogbn42.45 kgMattgloria Ku Other [facility] CenterGra[facility] Other 12-07-2022 11:15-0500Diastolic blood mm[Hg] Bill Ku Other [employer] Other 12-07-2022 11:15-3418QyO0% (BldA) [Mass fraction]97 % Bill Ku Other [employer] [address] Other 12-07-2022 11:15-0500Systolic blood yabvtips071 mm[Hg] Bill Ku Other [employer] [address] Other Encounters Encounter DateEncounter TypeCare ProviderFacilityStart: 10-17-2024 End: 49-69-9124Cxtrln flowsheetAna HAN Work Phone: noTX BCP OBStart: 10-17-2024 End: 48-95-0907Uyxycl flowsheetAna Menendez EMELY Work Phone: [facility] BCP OBStart: 10-17-2024 End: 73-69-8004Eyugvcghn Result EncounterAna Menendez EMELY Work Phone: [facility] External Department UnsolicitedStart: 10-17-2024 End: 26-35-5155Ymdmilk encounter procedureAna Dalalgurvinder HAN Work Phone: [facility] Work Phone: Start: 10-17-2024 End: 54-31-5085Gvuusdqy preventive med est patient 18-39 yrsAna Menendez EMELY Work Phone: [facility] BCP OBComment on above:Well woman exam with routine gynecological examStart: 10-17-2024 End: 14-52-0069magcpwuevhPMP RAMEYNot AvailableStart: 05-03-2024 End: 25-97-0470dfdmibncueFQBKX FAZIONot AvailableStart: 11-19-2023 End: 85-32-8487qcyonrafawXxvri Sanaz Other noXopik Other Start: 23-74-6162Aubelplgj encounterDavid SanazRiya Family [facility] HospitalueStart: 11-18-2023 End: 52-63-4240erbmbwdkkwRedst Girvin Other noCityblis PlanStan Other Start: 11-79-4133Jgnbkiynr encounterDavid SanazRiya Family Medicine BellueStart: 10-22-2022 End: 10-21-0943uekgorljctXokixsy Langenberg Other noXopik Other Start: 09-38-3414Febfas outpatient new 30 minutes Bill Page Vascular SurgeryStart: 10-13-2022 End: 98-26-2621blifgjflgnNC MITCHEL Talamantesuniversity of missouri health care PlanStan Other Start: 76-78-5828Pbopfemxs encounterDavid LauryfuadFPG [facility] BellevueStart: 06-18-2022 End: 82-28-6877obwubgrapnBW LAMAR VALENCIAFacility:A2Epsjo: 10-02-2021 End: 68-32-9578gzroavzoqeIsgvw Sanaz Other Nort PlanStan Other Start: 67-16-4425Ixebqmpgg encounterDavid LauryJosuéG [facility] BellevueStart: 04-15-2019 End: 75-92-5772Ldphcjd encounter procedureMICHAEL RIETHMILLERMercy Kaiser Foundation Hospitaltart: 05-11-2018 End: 68-76-2699UjvizlvwarATIWZYHD UNKNOWNFacility:[facility]tart: 04-26-2018 End: 55-19-5987Jwmnvmwekr and management of inpatientPROVIDER UNKNOWN Facility:[facility]tart: 03-31-2018 End: 42-76-8844JcepeemygePAWTXQO PHYSICIANFacility:[facility] Procedures DateProcedureProcedure DetailPerforming ClinicianStart: 08-96-9254LDL,APTIMA HPV,AGE GDLNAna HAN Work Phone: Start: 23-50-0236Posymwjyjqx observation [Identifier] in Cervix by Cyto Howard HAN Work Phone: Start: 48-39-3181Eiigurmp mumpsMICHAEL RIETHMILLER Start: 72-37-8148Ukpuixca rubeolaMICHAEL RIETHMILLERStart: 91-25-7702Iufzwcml varicella-zosterMICHAEL RIETHMILLERStart: 93-97-4721Perkiqokdjr infectious agent antibody dennis nosMICHAEL RIETHMILLERStart: 27-75-4907Qw antigen response gamma interferon t-cell suspMICHAEL RIETHMILLERStart: 27-08-2027MSPRGW 2-6 C JT W INTBD FUS DEV, ANT APPR A COL, OPENAZEDINE MEDHKOUR Plan of Treatment DateCare ActivityDetailAuthorStart: 89-89-1563Hcdjukohu for malignant neoplasm of cervixNOMS HealthcareStart: 24-79-6272Ceauxscmo for malignant neoplasm of cervixPap SmearNOTX HealthcareStart: 10-23-2025 End: 61-83-8845Euidqrm encounter eqikjbwsm47/08/2025 2:00 PM EST Office Visit [facility] [address] [place] [id number] Ana Menendez PA [address] [place], [place] [id number] [facility] OBStart: 10-17-2024 End: 22-06-8469Uznesvi encounter mouhhdnod31/02/2024 2:00 PM EST Office Visit [facility] [address] [place] [address] Ana Menendez PA [address] [place], [place] [id number] ArrivedST. JO[facility]PH[facility] OBComment on above:ArrivedStart: 07-17-2024 Influenza vaccinationInfluenza Vaccine (#1)[facility] Cervical or vaginal smear or scraping studyPap Smear Pathology and Cytology Routine Well woman exam with routine gynecological exam Ordered: 10/17/2024[facility] Work Phone: comment on above:Ordered: 10/17/2024Human papilloma virus DNA [Presence] in Unspecified specimen by Probe with amplificationHPV DNA probe, amplified Microbiology Routine Well woman exam with routine gynecological exam Ordered: 10/17/2024[facility] HospitalComment on above:Ordered: 10/17/2024 Immunizations Immunization DateImmunizationNotesCare WvhvwyxzQglqbvic57-42-4830gpftsljif virus vaccine, unspecified formulationAna HAN Work Phone: [facility] Payers DatePayer CategoryPayerPolicy [id number] Health InsuranceGENERIC COMMERCIAL [id number] [id number] [id number] [id number] 2..[id number] Social History DateTypeDetailFacilityUnknown if ever smokedNouniversity of [place]ouri health care PlanStan Other Start: 07-27-2023 End: 35-99-4988Fbn Assigned At BirthNouniversity of missouri health care PlanStan Other Start: 59-80-8142Ocoosvz smoking status NHISSmokes tobacco dailyNOMS HealthcareHistory of tobacco useCigarette SmokerNOMS HealthcareStart: 07-27-2023 End: 61-89-0615Lvvnnnpwl beverage intakeCurrent drinker of alcohol (finding)[facility] HealthcareStart: 07-27-2023 End: 90-93-7716Tosxuxe of Social functionNOMS HealthcareStart: 31-43-4020Ehfnawa Commentmonthly or lessNOMS HealthcareStart: 53-28-5555Leb assigned at birthNot on fileNOMS Healthcare History of Present illness Narrative 12-02-2024 Note Date & UpplKbdhQcarrjci74-32-1974 History of Present illness Narrative* EMELY Deleon - 10/17/2024 2:00 PM EST Reason for Appointment: Patient ID: Ana Wen is a 38 y.o. female who presents for Well Women Visit Patient presents today for Annual Exam. MEDICATIONS Current Outpatient Medications Medication Instructions albuterol HFA (Ventolin HFA) 90 mcg/act inhaler Inhale 2 puffs every 4 hours by inhalation route. ALLERGIES Allergies Allergen Reactions Tetanus Toxoids Unknown PROBLEMS Active Ambulatory Problems Diagnosis Date Noted No Active Ambulatory Problems Resolved Ambulatory Problems Diagnosis Date Noted No Resolved Ambulatory Problems No Additional Past Medical History HISTORY PAST MEDICAL HISTORY SOCIAL HISTORY History reviewed. No pertinent past medical history. Social History Tobacco Use Smoking status: Every Day Types: Cigarettes Smokeless tobacco: Not on file Substance Use Topics Alcohol use: Yes Comment: monthly or less Drug use: Not on file FAMILY HISTORY Family History Problem Relation Name Age of Onset Melanoma Neg Hx SURGICAL HISTORY Past Surgical History: Procedure Laterality Date SECTION, LOW TRANSVERSE 2004 OTHER SURGICAL HISTORY 04/2018 disk replacement REVIEW OF SYSTEMS Review of Systems: Review of Systems Constitutional: Negative. HENT: Negative. Eyes: Negative. Respiratory: Negative. Cardiovascular: Negative. Gastrointestinal: Negative. Genitourinary: Negative. Musculoskeletal: Negative. Skin: Negative. Neurological: Negative. All other systems reviewed and are negative. Hematological: Negative. Endocrine: Negative. Allergic/Immunologic: Negative. OBJECTIVE Objective: Physical Exam Constitutional: Appearance: Normal appearance. She is well-developed. Genitourinary: Vulva normal. Right Adnexa: not tender and no mass present. Left Adnexa: not tender and no mass present. No cervical discharge. Breasts: Breasts are soft. Right: Normal. Left: Normal. HENT: Head: Normocephalic. Nose: Nose normal. Mouth/Throat: Mouth: Mucous membranes are moist. Cardiovascular: Rate and Rhythm: Normal rate and regular rhythm. Pulmonary: Effort: Pulmonary effort is normal. Breath sounds: Normal breath sounds. Abdominal: General: Bowel sounds are normal. There is no distension. Palpations: Abdomen is soft. Tenderness: There is no abdominal tenderness. There is no guarding or rebound. Musculoskeletal: General: No swelling. Normal range of motion. Cervical back: Normal range of motion. Right lower leg: No edema. Left lower leg: No edema. Neurological: General: No focal deficit present. Mental Status: She is alert and oriented to person, place, and time. Skin: General: Skin is warm and dry. Psychiatric: Mood and Affect: Mood normal. Behavior: Behavior normal. Vitals and nursing note reviewed. Exam conducted with a beekeeper farmer present. Vitals: Estimated body mass index is 33.02 kg/m as calculated from the following: Height as of 07/27/23: 5' 7 . Weight as of this encounter: 210 lb 12.8 oz. BP: 120/72 Patient's last menstrual period was 09/25/2024. ASSESSMENT & PLAN ICD-10-CM 1. Well woman exam with routine gynecological exam Z01.419 Pap Smear HPV DNA probe, amplified Annual Exam: Patient presents today for an annual exam. Patient states she is doing well and has no complaints. Pap was obtained without difficulty. Orders Placed This Encounter Procedures HPV DNA probe, amplified Follow Up: Patient is to return in one year for annual unless needed otherwise. Documented by Jenna Gamez LPN on behalf of: EMELY Deleon documented in this encounterSelect [facility]ty Hospital Evaluation note 11-19-2023 Note Date & ItqoZgugKofkihnj17-30-4893 Evaluation note* Encounter Date Diagnosis Assessment Notes Treatment Notes Treatment Clinical Notes Nov, Fever (ICD-10 - R50.9) She did start the Amoxicillin yesterday and her throat is feeling better, she voices that she is not swallowing razor blades any longer. She did miss work last night and would like an off work note. I will provide her with an off work note for 11-18-23. She is to take the entire course of ATB even iffeeling better. Nov,Thrombophlebitis of cephalic vein (ICD-10 - I80.8)She saw Dr. Ku for evaluation and voices that no one could explain why she had a blood clot. She had given blood 7-10 days prior to this occuring. She has since stopped donating blood. She was advised to take an ASA daily. She is still taking control, she was not told not to take the control any longer. 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 She voices that she had an elevated d-dimer when she was in the ER for an SVT episode so she had tohave a CT scan done. I did explain to her that the d-dimer test is sensitive and can be elevated when the body is under stress. A normal d- dimer rules out a blood clot. Nov,Other9:47 AM - 9:[address] Other Evaluation note 10-22-2022 Note Date & HfomHpdmXstjbmai45-60-8382 Evaluation note* Encounter Date Diagnosis Assessment Notes Treatment Notes Treatment Clinical Notes Oct, Thrombophlebitis of cephalic vei n (ICD-10 - I80.8) This patient has superficial thrombus in his left cephalic vein with mild inflammation and swelling. I suggested aspirin for its antiplatelet activity. There is no indication for any blood thinner atthis time. I did personally review the images that were uploaded from [facility] onto our PACS system. The blood clot does not currently involve the deep system. I recommended ice alternating with warm compresses and elevation in patients. I explained to the patient this will resolve but will take months. I will see her as needed in the future. I do believe this was initiated by a needle from a blood draw for giving blood. [address] Other Evaluation note Note Date & TypeNoteFacilityEvaluation noteNo InformationNortExcela [facility] [employer] Other Evaluation note Note Date & TypeNoteFacilityEvaluation note* Diagnosis Well woman exam with routine gynecological exam Routine gynecological examination documented in this encounter [facility] History general Narrative - Reported Note Date & TypeNoteFacilityHistory general Narrative - Reported* Type Description Date Medical History hx fainting Medical HistoryEcho; ; [facility] History2 D Echo; 2011; [facility] HistoryPoison ivyMedical HistoryA-fibSurgical HistoryC-[id number] HistoryACDF neck surgery - Dr Cuevas [facility]04/26/18 Hospitalization HistoryC-[id number] HistoryCHILDBIRTH [address] Other History general Narrative - Reported Note Date & TypeNoteFacilityHistory general Narrative - Reported* Type Description Date Medical History hx fainting Medical HistoryEcho; ; [facility]2 D Echo; 2011; [facility] HistoryPoison ivyMedical HistoryA-fibMedical HistoryBlood Clot Left ArmSurgical HistoryC-[id number] HistoryACDF neck surgery - Dr Cuevas [facility]04/26/18Hospitalization HistoryC-Prkupek7546 Hospitalization HistoryCHILDBIRTH C-[id number] [employer] [facility] [employer] Other Summary Purpose Family History No Family History Records FoundNo Family History Records FoundNo Family History Records FoundNo Family History Records FoundNo Family History Records Found Advance Directives No Advanced Directives Records FoundNo Advanced Directives Records FoundNo Advanced Directives Records FoundNo Advanced Directives Records FoundNo Advanced Directives Records Found Additional Source Comments INFORMATION SOURCE (unrecogn ized section and content) DATE CREATED AUTHOR 05/14/2018 [facility] DATE CREATED AUTHOR AUTHOR'S ORGANIZ ATION 04/22/2019 [facility] DATE CREATED AUTHOR AUTHOR'S ORGANIZ ATION 11/05/2022 [facility] DATE CREATED AUTHOR AUTHOR'S ORGANIZ ATION 09/23/2024 [facility] DATE CREATED AUTHOR AUTHOR'S ORGANIZ ATION 10/18/2024 [facility] EPIC REASON FOR VISIT (unrecogniz ed section and content) ReasonCommentsWell Women Visit Care Teams (unrecognized sec tion and content) Team MemberRelationshipSpecialtyStart DateEnd Date Nilsa Yo MD [address] [place] [address] PCP - GeneralFamily Medicine06/09/23Team MemberRelationshipSpecialtyStart DateEnd Date Nilsa Yo MD [address] [place] [address] PCP - GeneralFamily Medicine06/09/23Team MemberRelationshipSpecialtyStart DateEnd Date Nilsa Yo MD [address] [place] [address] PCP - GeneralFaorly Medicine06/09/23 FOR RECORDS PERTAINING TO PATIENTS WHO ARE OR HAVE BEEN ENROLLED IN A CHEMICAL DEPENDENCY/SUBSTANCEABUSE PROGRAM, SOME INFORMATION MAY BE OMITTED. This clinical summary was aggregated from multiple sources. Caution should be exercised in using it in the provision of clinical care. This summary normalizes information from multiple sources, and as a consequence, information in this document may materially change the coding, format and clinical context of patient data. In addition, data may be omitted in some cases. CLINICAL DECISIONS SHOULD BE BASED ON THE PRIMARY CLINICAL RECORDS. [facility] [employer] [facility]. provides no warranty or guarantee of the accuracy or completeness of information in this document.
[2025-10-30 23:08] LABS: Age Gdln ACOG Testing Note (.); IGP, Aptima HPV, rfx 16/18,45 Note (.)
== END 2025-10-26 19:03 | disposition home or self-care (01) ==
LOC: LAB 19:02
PROVIDERS: PCP Family Medicine; Visit Provider Physician Assistant
DX: Z01.419 Encounter for gynecological examination (general) (routine) without abnormal findings (principal)
CPT/HCPCS: 88175